=== PATIENT | female | born 1985 | race Caucasian/White ===

== ENCOUNTER 2018-08-27 03:08 | Inpatient (IN) | payer BC, MEDICAID ==
[~2018-08-27 03:08] MED LIST: Bupivacaine 0.25% 10 ML SDV ONE
[2018-08-27] MEDS ORDERED: Nalbuphine 10 MG/1 ML Vial IVPUSH PRN (03:49)
[2018-08-27] MEDS ORDERED: Sodium Chloride 0.9% 10 ML Syringe FLUSH PRN (03:49)
[2018-08-27] MEDS ORDERED: Oxytocin/Lactated Ringers 10 UNIT/1,000 ML BAG IV SCH ×2 (04:00)
[2018-08-27] MEDS: Lactated Ringers 1,000 ML IV SCH ×2 (06:18→07:10)
[2018-08-27] MEDS ORDERED: ePHEDrine 50 MG/ML SDV IVPUSH PRN ×3 (07:07→18:11)
[2018-08-27] MEDS ORDERED: fentaNYL 100 MCG/2 ML SDV EPIDUR PRN (07:07)
[2018-08-27] MEDS ORDERED: Ondansetron 4 MG/2 ML SDV IVPUSH PRN ×2 (07:07→15:59)
--- NOTE | 2018-08-27 07:11 | PCM.PREANE ---
Preanesthetic Assessment - Anesthesia/Transfusion/Family Hx Anesthesia History: Prior Anesthesia Without Reaction Family History of Anesthesia Reaction: No Transfusion History: No Prior Transfusion(s) Intubation History: Unknown - Review of Systems General: No Symptoms Pulmonary: No Symptoms Cardiovascular: No Symptoms Gastrointestinal: No Symptoms Neurological: No Symptoms Other: Reports: None - Physical Assessment NPO Status Date: 08/27/18 NPO Status Time: 05:30 Pulse: 91 O2 Sat by Pulse Oximetry: 99 Respiratory Rate: 17 Blood Pressure: 138/75 Temperature: 35.9 C Vital Signs: Last Vital Signs Temp 35.9 C 08/27/18 03:50 Pulse 91 08/27/18 03:50 Resp 17 08/27/18 03:50 BP 138/75 08/27/18 03:50 Pulse Ox Height: 1.57 m Weight: 79.787 kg ASA Class: 2 Mental Status: Alert & Oriented x3 Airway Class: Mallampati = 2 Dentition: Reports: Normal Dentition, Caries Thyro-Mental Finger Breadths: 3 Mouth Opening Finger Breadths: 3 ROM/Head Extension: Full Lungs: Clear to Auscultation, Normal Respiratory Effort Cardiovascular: Regular Rate, Regular Rhythm, No Murmurs - Lab Values: Laboratory Last Values WBC 15.48 K/mm3 (3.98-10.04) H 08/27/18 04:10 RBC 3.85 M/mm3 (3.98-5.22) L 08/27/18 04:10 Hgb 10.8 gm/L (11.2-15.7) L 08/27/18 04:10 Hct 32.7 % (34.1-44.9) L 08/27/18 04:10 MCV 84.9 fl (79.4-94.8) D 08/27/18 04:10 MCH 28.1 pg (25.6-32.2) 08/27/18 04:10 MCHC 33.0 g/dl (32.2-35.5) 08/27/18 04:10 RDW Std Deviation 42.1 fL (36.4-46.3) 08/27/18 04:10 Plt Count 260 K/mm3 (182-369) 08/27/18 04:10 MPV 10.8 fl (9.4-12.3) 08/27/18 04:10 Neut % (Auto) 80.7 % (34.0-71.1) H 08/27/18 04:10 Lymph % (Auto) 13.8 % (19.3-51.7) L 08/27/18 04:10 [place] % (Auto) 4.8 % (4.7-12.5) 08/27/18 04:10 Eos % (Auto) 0.3 (0.7-5.8) L 08/27/18 04:10 Baso % (Auto) 0.1 % (0.1-1.2) 08/27/18 04:10 Neut # (Auto) 12.52 K/mm3 (1.56-6.13) H 08/27/18 04:10 Lymph # (Auto) 2.13 K/mm3 (1.18-3.74) 08/27/18 04:10 [place] # (Auto) 0.74 K/mm3 (0.24-0.36) H 08/27/18 04:10 Eos # (Auto) 0.04 K/mm3 (0.04-0.36) 08/27/18 04:10 Baso # (Auto) 0.01 K/mm3 (0.01-0.08) 08/27/18 04:10 Above labs reviewed and noted and within acceptable ranges to proceed with epidural if desired. 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: - SUBSTANCE USE Smoking Status *Q: Former Smoker Tobacco Use Within Last Twelve Months: Cigarettes Second Hand Smoke Exposure: No Recreational Drug Use History: Yes Recreational Drug Type: Reports: Marijuana/Hashish Recreational Drug Last Use: 2 years ago - HOME MEDS Home Medications: Home Meds Fish Oil/[place]-3 Fatty Acids [Fish Oil] 1 each PO DAILY 08/27/18 [History] Pnv No.95/Ferrous Fum/Folic AC [ Caplet] 1 each PO DAILY 08/27/18 [ History] Vitamin B Complex [B Complex] 1 each PO DAILY 08/27/18 [History] - CURRENT (IN HOUSE) MEDS Current Meds: Current Medications Lactated Ringer's (Ringers, Lactated) 1,000 mls @ 100 mls/hr IV ASDIRECTED BISHOP Last Admin: 08/27/18 06:18 Dose: 100 mls/hr Oxytocin/Lactated Ringer's (Pitocin In Lr 10 Units/1,000 Ml) 10 unit in 1,000 mls @ 12 mls/hr IV TITRATE BISHOP; Protocol Oxytocin/Lactated Ringer's (Pitocin In Lr 10 Units/1,000 Ml) 10 unit in 1,000 mls @ 500 mls/hr IV .CONTINUOUS BISHOP Nalbuphine HCl (Nubain) 10 mg IVPUSH Q2H PRN PRN Reason: Pain Sodium Chloride (Saline Flush) 10 ml FLUSH ASDIRECTED PRN PRN Reason: Keep Vein Open
[2018-08-27] MEDS ORDERED: Phenylephrine 1 MG in Sodium Chloride 0.9% 10 ML IV SCH ×2 (07:15→16:00)
[2018-08-27] MEDS ORDERED: Bupivacaine/fentaNYL/NS 100 ML Bag EPIDUR SCH (07:15)
--- NOTE | 2018-08-27 08:36 | PCM.LDHP ---
L&D History of Present Illness - General Date of Service: 08/27/18 Admit Problem/Dx: Patient Status Order with Admit Dx/Problem 08/27/18 03:50 Patient Status [ADT] Routine Admission Diagnosis/Problem Admission Diagnosis/Problem 08/27/18 08:25 Sheri is a 32-year-old 2 para 0010 white female admitted at 40-0/7 weeks gestational age with an TRISTON of 08/27/2018 in active labor. Source of Information: Patient History Limitations: Reports: No Limitations - History of Present Illness Introduction:: Sheri is a 32-year-old 2 para 0010 white female admitted at 40-0/7 weeks gestational age with an TRISTON of 08/27/2018 in active labor.Patient scheduled for induction on a.m. of admission but came in in active labor with cervical change. She is ariana every 2-3 minutes, moderate intensity and has progressed to 6 cm dilation. Excellent water is intact. heart tones are reassuring and patient reports good activity. 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 Patient had menarche at age 13. Cycles 30 days. Menses are regular and last menstrual period was approximately. Her TRISTON of 08/27/2018 is set by a last menstrual period but supported by an ultrasound done at 10-3/7 weeks and 3 other ultrasounds done on 01/15/2018 01/04/2018 and 04/12/2017. course has been relatively unremarkable. She did have an abnormal 1 hour glucose tolerance test but a normal three-hour glucose tolerance test. She plans to breast-feed. She is a centering patient. She declines flu vaccination. [place] depression screening score on 04/23/2018 was 4/ 30. He is group B strep negative. [place] screen done at 16-18 weeks was negative. She initially had a subchorionic hemorrhage which resolved with time. Patient was first seen on 01/29/2018 and was seen on a regular basis in the centering program. Her weight gain was from 142-177 for a 35 pound weight gain. Vital signs remained stable throughout the course and her fundal height growth was appropriate. Baby is in a vertex presentation laboratory testing: Patient's blood is O+ with a negative antibody screen. First hemoglobin was 11.4 g/dL. Platelets are 313,000. She is rubella immune. RPR is nonreactive. Urine culture was unremarkable. Hepatitis B surface antigen and HIV assays were both negative. Her chlamydia and gonorrhea assays were both negative. Second trimester testing showed hemoglobin to be 10.4 g/dL and platelets at 304, 000. One-hour GTT was 157. Three-hour glucose tolerance test was normal with a fasting blood sugar of 83, a 1 hour glucose of 142, a 2 hour glucose 117 and a three-hour glucose 93. Group B strep screen negative. Allergies: None Medications: 1. B complex oral capsules 1 daily 2. vitamins 1 daily 3. Fish oil capsule 1 daily Past medical history:. 1. Miscarriage 1 2018natural passage. 2. Dysplastic nevus Past surgical history: 1. Tonsillectomy 1991 Family history: Mother is alive but with hypercholesterolemia. Father is alive and well. 2 sistersolder sister with hypothyroidismthyroid removed. Middle sister with history of seizures. Maternal grandfather . He had suffered from polio. Maternal grandmother is , breast cancer at age 60+. Paternal grandfather secondary to heart disease and an NC. Paternal grandmother is alive and well. Maternal aunt with skin cancer. No bleeding or clotting or anesthesia problems noted in the family. One paternal cousin with muscular dystrophy. Mother had 2 miscarriages. Social history: Patient is single. 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 She lives in [place] with her significant other Jose Becerril. She does not use incentive most alcohol, drugs or tobacco. Review of systems: In general patient has no complaints. She is ariana. Baby has been active. Skin: Negative Lungs: No infectious symptoms or shortness of breath Cardiovascular: No chest pain or exercise intolerance Breasts: Changes associated with . GI: Negative : Changes associated with . Musculoskeletal: Negative Neurological: Negative Physical exam: In general the patient is well-developed, well-nourished, pleasant female of stated age in no acute distress. Patient is ariana regularly. Skin is warm dry without lesions. HEENT, neck and back within normal limits. Lungs are clear with good breath sounds in all lung ly. Cardiovascular exam shows regular and rhythm without murmurs. Breast exam is deferred having been on first visit was found to be normal. Patient plans to breast-feed. Abdomen is gravid with last fundal height in clinic at 39 cm, baby in vertex presentation. Genital exam per nursing staff shows cervix to be 6 cm dilated, near 100% effaced, bulging bag of enrique. Extremities and neurological exam are grossly within normal limits. 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: Social & Family History - Family History Family Medical History: Noncontributory - Tobacco Use Smoking Status *Q: Former Smoker Packs/Tins Daily: 0.5 Used Tobacco, but Quit: Yes Month/Year Tobacco Last Used: 12/2016 Second Hand Smoke Exposure: No - Recreational Drug Use Recreational Drug Use: Yes Drug Use in Last 12 Months: No Recreational Drug Type: Reports: Marijuana/Hashish Recreational Drug Use Frequency: Not Used In Over 6 Months Recreational Drug Last Use: 2 years ago H&P Review of Systems - Review of Systems: Review Of Systems: See Below L&D Exam - Exam Exam: See Below - Vital Signs Vital Signs: Last Vital Signs Temp 35.9 C 08/27/18 07:27 Pulse 91 08/27/18 07:27 Resp 17 08/27/18 07:27 BP 138/75 08/27/18 07:27 Pulse Ox 99 08/27/18 07:27 Weight: 79.787 kg - Patient Data Lab Results Last 24 hrs: Laboratory Results - last 24 hr 08/27/18 Range/Units 04:10 WBC 15.48 H (3.98-10.04) K/mm3 RBC 3.85 L (3.98-5.22) M/mm3 Hgb 10.8 L (11.2-15.7) gm/L Hct 32.7 L (34.1-44.9) % MCV 84.9 D (79.4-94.8) fl MCH 28.1 (25.6-32.2) pg MCHC 33.0 (32.2-35.5) g/dl RDW Std Deviation 42.1 (36.4-46.3) fL Plt Count 260 (182-369) K/mm3 MPV 10.8 (9.4-12.3) fl Neut % (Auto) 80.7 H (34.0-71.1) % Lymph % (Auto) 13.8 L (19.3-51.7) % [place] % (Auto) 4.8 (4.7-12.5) % Eos % (Auto) 0.3 L (0.7-5.8) Baso % (Auto) 0.1 (0.1-1.2) % Neut # (Auto) 12.52 H (1.56-6.13) K/mm3 Lymph # (Auto) 2.13 (1.18-3.74) K/mm3 [place] # (Auto) 0.74 H (0.24-0.36) K/mm3 Eos # (Auto) 0.04 (0.04-0.36) K/mm3 Baso # (Auto) 0.01 (0.01-0.08) K/mm3 Result Diagrams: 08/27/18 04:10 Problem List Initiated/Reviewed/Updated: Yes Orders Last 24hrs: Active Orders 24 hr Category Date Time Status Patient Status [ADT] Routine ADT 08/27/18 03:50 Active Activity as Tolerated [RC] PFP Care 08/27/18 03:50 Active Communication Order [RC] ASDIRECTED Care 08/27/18 03:50 Active Notify Provider [RC] ASDIRECTED Care 08/27/18 07:07 Active Notify Provider [RC] PFP Care 08/27/18 03:50 Active Notify Provider [RC] PRN Care 08/27/18 03:50 Active Oxygen Therapy [RC] ASDIRECTED Care 08/27/18 07:07 Active Peripheral IV Care [RC] . DIRECTED Care 08/27/18 03:51 Active Pulse Oximetry [RC] ASDIRECTED Care 08/27/18 07:07 Active Vital Signs [RC] PER UNIT ROUTINE Care 08/27/18 03:50 Active Regular Diet [DIET] Diet 08/27/18 Breakfast Active RAPID PLASMA REAGIN,RPR [CHEM] Routine Lab 08/27/18 04:10 Received Bupivacaine/fentaNYL/NS [fentaNYL/Bupivacaine/NS 2 MCG- Med 08/27/18 07:15 Active 0.125% 100 ML] 100 ml EPIDUR ASDIRECTED Lactated Ringers [Ringers, Lactated] 1,000 ml Med 08/27/18 04:00 Active IV ASDIRECTED Nalbuphine [Nubain] Med 08/27/18 03:49 Active 10 mg IVPUSH Q2H PRN Ondansetron [Zofran] Med 08/27/18 07:07 Active 4 mg IVPUSH ONETIME PRN Oxytocin/Lactated Ringers [Pitocin in LR 10 Units/1,000 Med 08/27/18 04:00 Active ML] 10 unit in 1,000 ml IV .CONTINUOUS Oxytocin/Lactated Ringers [Pitocin in LR 10 Units/1,000 Med 08/27/18 04:00 Active ML] 10 unit in 1,000 ml IV TITRATE Phenylephrine [Osmin-Synephrine] 1 mg Med 08/27/18 07:15 Active Sodium Chloride 0.9% [Normal Saline] 10 ml IV TITRATE Sodium Chloride 0.9% [Saline Flush] Med 08/27/18 03:49 Active 10 ml FLUSH ASDIRECTED PRN ePHEDrine [ePHEDrine sulfate] Med 08/27/18 07:07 Active 5 mg IVPUSH ASDIRECTED PRN fentaNYL [Sublimaze] Med 08/27/18 07:07 Active 100 mcg EPIDUR Q3H PRN Electronic Heart Tones Ext w TOCO [WOMSER] Oth 08/27/18 03:50 Ordered Routine Electronic Heart Tones Internal [WOMSER] Per Unit Oth 08/27/18 03:50 Ordered Routine Peripheral IV Insertion Adult [OM.PC] Routine Oth 08/27/18 03:50 Ordered Resuscitation Status Routine Resus Stat 08/27/18 03:49 Ordered Medication Orders Ephedrine Sulfate (Ephedrine Sulfate) 5 mg IVPUSH ASDIRECTED PRN PRN Reason: Hypotension Fentanyl (Sublimaze) 100 mcg EPIDUR Q3H PRN PRN Reason: Pain Last Admin: 08/27/18 07:29 Dose: 100 mcg Fentanyl/Bupivacaine HCl (Fentanyl/Bupivacaine/Ns 2 Mcg-0.125% 100 Ml) 100 ml EPIDUR ASDIRECTED BISHOP Last Admin: 08/27/18 07:28 Dose: 100 ml Lactated Ringer's (Ringers, Lactated) 1,000 mls @ 100 mls/hr IV ASDIRECTED BISHOP Last Admin: 08/27/18 07:10 Dose: 100 mls/hr Infusion: 08/27/18 07:10 Dose: 100 mls/hr Admin: 08/27/18 06:18 Dose: 100 mls/hr Oxytocin/Lactated Ringer's (Pitocin In Lr 10 Units/1,000 Ml) 10 unit in 1,000 mls @ 12 mls/hr IV TITRATE BISHOP; Protocol Oxytocin/Lactated Ringer's (Pitocin In Lr 10 Units/1,000 Ml) 10 unit in 1,000 mls @ 500 mls/hr IV .CONTINUOUS BISHOP Phenylephrine HCl 1 mg/ Sodium (Chloride) 10.1 mls @ 1 mls/sec IV TITRATE BISHOP; Protocol Nalbuphine HCl (Nubain) 10 mg IVPUSH Q2H PRN PRN Reason: Pain Ondansetron HCl (Zofran) 4 mg IVPUSH ONETIME PRN PRN Reason: Nausea/Vomiting Sodium Chloride (Saline Flush) 10 ml FLUSH ASDIRECTED PRN PRN Reason: Keep Vein Open Assessment/Plan Comment:: 1. 2 para 0010 female with a 40-0/7 week intrauterine -TRISTON 08/27, in active labor with advanced cervical dilation 2. Group B strep screen negative 3. Patient plans to breast-feed 4. One hour GTT was elevated but three-hour GTT was normal. 5. Patient plans to do epidural in labor and delivery 6. RPR is nonreactive, she is rubella immune. 7. T dap-given on 05/21/2018 Plan: 1. Anticipate normal spontaneous vaginal delivery 2. Epidural when necessary for labor analgesia 3. CBC and RPR per protocol 4. Support breast-feeding decision 5. Routine labor care.
[2018-08-27] MEDS ORDERED: Metoclopramide 10 MG/2 ML SDV ONE (15:33)
[2018-08-27] MEDS ORDERED: Citric Acid/Sodium Citrate Solution 30 ML Cup ONE (15:34)
--- NOTE | 2018-08-27 15:40 | PCM.SN ---
- Free Text/Narrative Note: Patient made to complete dilation approximately 1415 hrs. She pushed for some period of time and began having multiple variable decelerations. To proceed to an attempt at phaco extraction. The procedure, risks, benefits, alternatives of care including a section DISCUSSED with patient. She appeared to understand and wish to proceed. Verbal consent was given. The vacuum extraction attempt was made with 3 contractions the vacuum extractor was used to apply action and was unsuccessful. The baby's head was brought down to +3 station but was not able to be brought beyond that. Patient's heart tones continued to have significant variable decelerations associated with contractions. Because of the non-descent of the head and the nonreassuring heart tones decision was made to proceed to primary section. The procedure of section, its risks, benefits discussed with patient and her significant other shown. It appeared understand and wish to proceed and a consent is signed. heart tones allowed to recover and at the time of transfer to the room when 120s with moderate variability.
[2018-08-27] MEDS ORDERED: Ketorolac 30 MG/ML SDV ONE (15:41)
[2018-08-27] MEDS ORDERED: ceFAZolin 1 GM Vial ONE (15:41)
[2018-08-27] MEDS ORDERED: Bupivacaine 0.5% 30 ML SDV ONE (15:41)
[2018-08-27] MEDS ORDERED: Lactated Ringers 1,000 ML ONE (15:41)
[2018-08-27] MEDS ORDERED: Ondansetron 4 MG/2 ML SDV ONE (15:41)
[2018-08-27] MEDS ORDERED: Morphine PF 10 MG/10 ML SDV ONE (15:41)
[2018-08-27] MEDS ORDERED: Phenylephrine/Normal Saline 100 MCG/ML 10 ML Syringe ONE (15:41)
[2018-08-27] MEDS ORDERED: fentaNYL 100 MCG/2 ML SDV ONE (15:41)
[2018-08-27] MEDS ORDERED: Lidocaine 2% with EPINEPHrine 1:200,000 20 ML SDV ONE (15:41)
[2018-08-27] MEDS ORDERED: Oxytocin 10 Units/1 ML SDV ONE (15:41)
[2018-08-27] MEDS ORDERED: HYDROmorphone 0.5 MG/0.5 ML Syringe IVPUSH PRN (15:59)
[2018-08-27] MEDS ORDERED: diphenhydrAMINE 50 MG/ML SDV IVPUSH PRN ×2 (15:59→18:11)
[2018-08-27] MEDS ORDERED: fentaNYL 100 MCG/2 ML SDV IVPUSH PRN (15:59)
[2018-08-27] MEDS ORDERED: Meperidine 50 MG/ML Vial ONE (16:03)
--- NOTE | 2018-08-27 16:40 | PCM.POSTAN ---
POST ANESTHESIA ASSESSMENT - MENTAL STATUS Mental Status: Alert - VITAL SIGNS Pulse Rate: 76 SaO2: 96 Resp Rate: 17 Blood Pressure: 88/41 Temperature: 37.5 C - RESPIRATORY Respiratory Status: Respiratory Rate WNL, Airway Patent, O2 Saturation Stable, Supplemental Oxygen - CARDIOVASCULAR CV Status: Pulse Rate WNL, Blood Pressure Stable - GASTROINTESTINAL GI Status: No Symptoms - POST OP HYDRATION Hydration Status: Adequate & Stable
--- NOTE | 2018-08-27 16:42 | PCM.OPNOTE ---
- General Post-Op/Procedure Note Date of Surgery/Procedure: 08/27/18 Operative Procedure(s): Primary lower uterine segment transverse section through Pfannenstiel skin incision Findings: Baby was occiput posterior. Nuchal cord moderately tight 1 amniotic fluid clear. Uterus tubes ovaries consistent with normal term Pre Op Diagnosis: 1. 40-0/7 week intrauterine . 2. Failure to descend Post-Op Diagnosis: Same with nuchal cord 1 and persistent occiput posterior position. Anesthesia Technique: Spinal Other Anesthesia Type: Marcaine her 0.5%20 mLlocal Primary Surgeon: Heriberto Guerin Secondary Surgeon: Manuel Omer Anesthesia Provider: Lana Nguyen Reason Auction Clerk Was Necessary: Retraction, assistance, patient safety, quality of care. Fluid Replacement, Intraop: 900 Output, Urine Amount: 25 EBL in mLs: 700 Drain/Tube Comments:: Indwelling bladder catheter Complications: None Condition: Good Free Text/Narrative:: Intake & Output 08/27/18 08/27/18 08/27/18 06:59 14:59 22:59 Intake Total 1000 Balance 1000 Surgery duration: 28 minutes Surgery duration: Procedure: The patient is appropriately consented. Patient was transferred to the room. Epidural analgesia was bolstered to anesthesia level. After confirmation of adequate anesthesia patient was placed in a supine position with a wedge under her right side to facilitate left lateral positioning. Patient is minimally frog legged in order to possibly lift up vaginally on the baby's head if necessary due to slow placement in the pelvis. The patient was prepped and draped in usual fashion. Kim catheter was already placed . The anesthetic was checked and found to be adequate. 20 mL of Marcaine 0.5% was injected locally in the Pfannenstiel incision site. The Pfannenstiel skin incision was then made and carried down through skin, subcutaneous and fascial layers. The fascia was then undermined superiorly and inferiorly to allow for adequate operating room. The recti muscles midline and preperitoneal fat was bluntly dissected. Peritoneal cavity was entered longitudinally. The vesicouterine peritoneum was then incised transversely and bladder flap was developed. Myometrium was incised transversely to the level of the amniotic sac. This incision was extended bilaterally in a blunt fashion. The amniotic sac was then ruptured resulting in clear amniotic fluid. A hand is placed in the low uterine segment and the baby's head was brought forth through the incision. The baby was completely delivered using fundal pressure in a routine fashion. The nose and mouth were bulb suctioned. Baby's cord was clamped x2 cut and baby was handed off to attending stretcher operator Dr Salazar. Placenta was expressed after cord blood was obtained. Uterus was then exteriorized to allow for easier closure. The cervix was assessed and found to be dilated adequately to allow egress of blood. The uterus was closed in 2 layers. The first layer a running locked suture of 0 Monocryl, the second layer a running locked vertical mattress suture of 0 Monocryl. [id number] suture was placed at mid incision to control 1 bleeder. Hemostasis confirmed at this time. Sponge instrument needle counts are correct. The uterus was returned to the abdominal cavity and lateral gutters were cleared of blood. Once again sponge needle counts are correct. The anterior abdominal wall fascia was closed with a #1 PDS suture from angle to angle. The subcutaneous area was found to be free of any bleeders. Skin was closed with a running subcuticular stitch of 3-0 Monocryl in a vertical mattress suture fashion using a Zana needle. Prineo mesh/glue was then applied to further approximate the incision. It should be noted that patient received 2 g of Ancef preoperatively for infection prophylaxis and had Pitocin infused after delivery of the placenta to facilitate uterine contraction. She also had sequential compression stockings in place for DVT prophylaxis. Patient was discharged from the operating room in satisfactory condition.
[2018-08-27] MEDS ORDERED: Naloxone 0.4 MG/ML SDV IVPUSH PRN (18:11)
[2018-08-27] MEDS ORDERED: Ondansetron 4 MG/2 ML SDV IV PRN (18:11)
[2018-08-27] MEDS ORDERED: Lanolin 100% Cream 7 GM Tube TOP PRN (18:11)
[2018-08-27] MEDS ORDERED: Dextrose 5%-Lactated Ringers 1,000 ML IV SCH (18:11)
[2018-08-27] MEDS ORDERED: Ibuprofen 800 MG Tab PO SCH ×2 (18:11→22:00)
[2018-08-27] MEDS ORDERED: Acetaminophen/oxyCODONE 325-5 MG Tab PO PRN (18:11)
[2018-08-27] MEDS: Simethicone 80 MG Tab.Chew PO SCH (21:08)
[2018-08-27] MEDS ORDERED: Metoclopramide 10 MG/2 ML SDV IVPUSH PRN (22:44)
[2018-08-27] MEDS: Sodium Chloride 0.9% 800 ML IV ONE (23:00)
[2018-08-28] MEDS: Sodium Chloride 0.9% 800 ML IV ONE (02:29)
[2018-08-28] MEDS: Simethicone 80 MG Tab.Chew PO SCH ×5 (02:30→20:57)
--- NOTE | 2018-08-28 07:30 | PCM48HPAN ---
Post Anesthesia Note - EVALUATION WITHIN 48HRS OF ANESTHETIC Vital Signs in Normal Range: Yes Patient Participated in Evaluation: Yes Respiratory Function Stable: Yes Airway Patent: Yes Cardiovascular Function Stable: Yes Hydration Status Stable: Yes Pain Control Satisfactory: Yes Nausea and Vomiting Control Satisfactory: Yes Mental Status Recovered: Yes
[2018-08-28] MEDS: Ibuprofen 800 MG Tab PO SCH ×2 (08:34→17:40)
[2018-08-28] MEDS: Docusate Sodium 100 MG Cap PO PRN (08:35)
[2018-08-28] MEDS: Prenatal Multivitamin with Calcium/Folic Acid/Iron Tab PO SCH (14:36)
--- NOTE | 2018-08-28 17:56 | PCM.SN ---
- Free Text/Narrative Note: note: Postoperative day one Patient is doing well in the period. Minimal lochia, voiding well, ambulated without problems. Nursing without concerns. Patient is afebrile, vital signs are stable Abdomen is flat, soft, uterus is below the umbilicus and is firm and nontender. Incision appears to be intact, dry, mesh is still in place. Positive bowel sounds are noted. Legs are nontender. Hemoglobin is decreased to 7.2 from 10.8. Patient clinically is doing well however Assessment: /postoperative day one-recovery going well. Plan: Routine care. Patient be discharged home within the next 24-48 hours. Recheck CBC in the morning if stable will supplement with iron only.
[2018-08-29] MEDS: Ibuprofen 800 MG Tab PO SCH ×3 (01:11→17:50)
[2018-08-29] MEDS: Simethicone 80 MG Tab.Chew PO SCH ×4 (08:36→21:52)
[2018-08-29] MEDS: Docusate Sodium 100 MG Cap PO PRN (08:41)
[2018-08-29] MEDS: Prenatal Multivitamin with Calcium/Folic Acid/Iron Tab PO SCH (16:03)
[2018-08-30] MEDS: Ibuprofen 800 MG Tab PO SCH ×2 (01:11→08:22)
--- NOTE | 2018-08-30 05:30 | PCM.DCSUM1 ---
Discharge Summary - Hospital Course Free Text/Narrative:: Sheri is a 32-year-old 2 now para 1011 white female who was admitted on in active labor. She presented with progressive cervical dilation, contractions. She progressed to complete cervical dilation. During the course of this progression she began having significant variable decelerations. After achieving complete cervical dilation she pushed for approximately 1 hour at which time the variable decelerations became severe with occasions of bradycardia. Decision was made to proceed to an attempted vacuum extraction delivery. Vacuum extraction delivery was attempted for 3 contractions. No pop offs were noted. The baby failed however to deliver and decision was made to proceed to primary section. Primary section was accomplished on 08/27/2018. Patient was delivered of a baby boy born at 1600 hrs. on 2018. Apgars were 8 and 8. Weight was 3310 g Fc 7 lbs. 5 oz.). Diagnosis was failure to descend. Patient is noted to have clear amniotic fluid. The nuchal cord was moderately tight 1 and baby was in a persistent occiput posterior position. Anatomy however was completely normal for term . patient is done well. She is recovering well.She is ambulating well. She is nursing without concerns and is voiding without difficulties. Her hemoglobin has decreased from just over 10 mg deciliter on admission to 6.8 mg/ dL at this time. She is however clinically stable and is to be tolerating this blood loss anemia well. See made to not transfuse her this time stability. Patient is desiring discharge home today. Diagnosis: Stroke: No - Discharge Data Discharge Date: 08/30/18 Discharge Disposition: Home, Self-Care 01 Condition: Good - Patient Summary/Data Operative Procedure(s) Performed: Primary lower uterine segment transverse section through Pfannenstiel skin incision - Patient Instructions Diet: Regular Diet as Tolerated (Nursing diet with increase calories and calcium as recommended) Activity: As Tolerated (No intercourse or tampons until seen back. No lifting greater than 15 pounds or driving a car 1 week.) Driving: Do Not Drive (1 week.) Showering/Bathing: May Shower Wound/Incision Care: Keep Operative Site/Wound Site Clean and Dry Notify Provider of: Fever, Increased Pain, Swelling and Redness, Drainage, Nausea and/or Vomiting - Discharge Plan Prescriptions/Med Rec: Ferrous Sulfate 325 mg PO BID #100 tablet Home Medications: Home Meds Fish Oil/[place]-3 Fatty Acids [Fish Oil] 1 each PO DAILY 08/27/18 [History] Pnv No.95/Ferrous Fum/Folic AC [ Caplet] 1 each PO DAILY 08/27/18 [ History] Vitamin B Complex [B Complex] 1 each PO DAILY 08/27/18 [History] Acetaminophen/oxyCODONE [Percocet 325-5 MG] 2 tab PO Q4H PRN tablet 08/30/18 [ Rx] Ferrous Sulfate 325 mg PO BID #100 tablet 08/30/18 [Rx] Ibuprofen [Motrin] 800 mg PO Q8H tablet 08/30/18 [Rx] Patient Handouts: Delivery, Care After Referrals: Heriberto Guerin MD [Primary Care Provider] - (Return to clinicDr. Guerin2 weeks.) - Discharge Summary/Plan Comment DC Time >30 min.: No Discharge Summary/Plan Comment: Discharge instructions: 1. Discharge home 2. Diet, activity and follow-up discussed with patient. Recommend nursing diet with increased calories and calcium. 3. Precautions given concern increased pain, bleeding, temperature, signs/ symptoms of DVT/PE. 4. Medications per home medication was printed, discussed with and given to the patient. 5. Return to clinic-Dr. Guerin[facility] in 2 weeks. Diagnosis: 1. Term - failure to descend -Delivered by primary section 2. anemia secondary to related anemia and acute blood loss anemia Condition: Good - Patient Data Vitals - Most Recent: Last Vital Signs Temp 36.4 C 08/30/18 04:47 Pulse 71 08/30/18 04:47 Resp 14 08/30/18 04:47 BP 129/81 08/30/18 04:47 Pulse Ox 95 08/30/18 04:47 Weight - Most Recent: 79.787 kg I&O - Last 24 hours: Intake & Output 08/29/18 08/29/18 08/30/18 14:59 22:59 06:59 Intake Total 0 Balance 0 Lab Results - Last 24 hrs: Laboratory Results - last 24 hr 08/29/18 Range/Units 05:19 WBC 16.88 H (3.98-10.04) K/mm3 RBC 2.44 L (3.98-5.22) M/mm3 Hgb 6.8 L* (11.2-15.7) gm/L Hct 21.6 L (34.1-44.9) % MCV 88.5 (79.4-94.8) fl MCH 27.9 (25.6-32.2) pg MCHC 31.5 L (32.2-35.5) g/dl RDW Std Deviation 44.0 (36.4-46.3) fL Plt Count 233 (182-369) K/mm3 MPV 10.9 (9.4-12.3) fl Neut % (Auto) 77.0 H (34.0-71.1) % Lymph % (Auto) 16.5 L (19.3-51.7) % [place] % (Auto) 5.7 (4.7-12.5) % Eos % (Auto) 0.4 L (0.7-5.8) Baso % (Auto) 0.1 (0.1-1.2) % Neut # (Auto) 13.00 H (1.56-6.13) K/mm3 Lymph # (Auto) 2.78 (1.18-3.74) K/mm3 [place] # (Auto) 0.97 H (0.24-0.36) K/mm3 Eos # (Auto) 0.07 (0.04-0.36) K/mm3 Baso # (Auto) 0.01 (0.01-0.08) K/mm3 Manual Slide Review Abnormal smear Med Orders - Current: Current Medications Diphenhydramine HCl (Benadryl) 25 mg IVPUSH Q6H PRN PRN Reason: Itching or Nausea Docusate Sodium (Colace) 100 mg PO Q12H PRN PRN Reason: Constipation Last Admin: 08/29/18 08:41 Dose: 100 mg Emollient Ointment (Lansinoh Hpa) 0 gm TOP ASDIRECTED PRN PRN Reason: Sore Nipples Ephedrine Sulfate (Ephedrine Sulfate) 5 mg IVPUSH SEECOMMENT PRN PRN Reason: Other Ibuprofen (Motrin) 800 mg PO Q8H BISHOP Last Admin: 08/30/18 01:11 Dose: 800 mg Metoclopramide HCl (Reglan) 10 mg IVPUSH Q4H PRN PRN Reason: Nausea/Vomiting Last Admin: 08/27/18 22:55 Dose: 10 mg Naloxone HCl (Narcan) 0.1 mg IVPUSH SEECOMMENT PRN PRN Reason: Respiratory Depression Ondansetron HCl (Zofran) 4 mg IV Q4H PRN PRN Reason: Nausea/Vomiting Last Admin: 08/27/18 20:40 Dose: 4 mg Oxycodone/Acetaminophen (Percocet 325-5 Mg) 2 tab PO Q4H PRN PRN Reason: Pain (moderate 4-6) Prenat Multivit/[employer]r/Iron/Folic Ac ( Plus Iron) 1 each PO DAILY [facility] Last Admin: 08/29/18 16:03 Dose: Not Given Simethicone (Simethicone) 160 mg PO QID [facility] Last Admin: 08/29/18 21:52 Dose: 160 mg Discontinued Medications Bupivacaine HCl (Marcaine 0.5%) Confirm Administered Dose 30 ml .ROUTE .STK-MED ONE Stop: 08/27/18 15:42 Last Admin: 08/27/18 15:57 Dose: 20 ml Bupivacaine HCl (Sensorcaine-Mpf 0.25%) 10 ml .ROUTE .STK-MED ONE Stop: 08/27/18 00:01 Cefazolin Sodium (Ancef) Confirm Administered Dose 2 gm .ROUTE .STK-MED ONE Stop: 08/27/18 15:42 Citric Acid/Sodium Citrate (Bicitra Solution) Confirm Administered Dose 30 ml .ROUTE .STK-MED ONE Stop: 08/27/18 15:35 Last Admin: 08/27/18 15:36 Dose: 30 ml Diphenhydramine HCl (Benadryl) 25 mg IVPUSH Q6H PRN PRN Reason: pruritis Ephedrine Sulfate (Ephedrine Sulfate) 5 mg IVPUSH ASDIRECTED PRN PRN Reason: Hypotension Ephedrine Sulfate (Ephedrine Sulfate) 5 mg IVPUSH ASDIRECTED PRN PRN Reason: Hypotension Fentanyl (Sublimaze) 100 mcg EPIDUR Q3H PRN PRN Reason: Pain Last Admin: 08/27/18 07:29 Dose: 100 mcg Fentanyl (Sublimaze) Confirm Administered Dose 100 mcg .ROUTE .STK-MED ONE Stop: 08/27/18 15:42 Fentanyl (Sublimaze) 50 mcg IVPUSH Q5M PRN PRN Reason: Pain Fentanyl/Bupivacaine HCl (Fentanyl/Bupivacaine/Ns 2 Mcg-0.125% 100 Ml) 100 ml EPIDUR ASDIRECTED [facility] Last Admin: 08/27/18 07:28 Dose: 100 ml Hydromorphone HCl (Dilaudid) 0.5 mg IVPUSH Q15M PRN PRN Reason: Pain (severe 7-10) Lactated Ringer's (Ringers, Lactated) 1,000 mls @ 100 mls/hr IV ASDIRECTED [facility] Last Admin: 08/27/18 07:10 Dose: 100 mls/hr Oxytocin/Lactated Ringer's (Pitocin In Lr 10 Units/1,000 Ml) 10 unit in 1,000 mls @ 12 mls/hr IV TITRATE BISHOP; Protocol Last Admin: 08/27/18 11:57 Dose: 2 munits/min, 12 mls/hr Oxytocin/Lactated Ringer's (Pitocin In Lr 10 Units/1,000 Ml) 10 unit in 1,000 mls @ 500 mls/hr IV .CONTINUOUS BISHOP Phenylephrine HCl 1 mg/ Sodium (Chloride) 10.1 mls @ 1 mls/sec IV TITRATE BISHOP; Protocol Lactated Ringer's (Ringers, Lactated) Confirm Administered Dose 1,000 mls @ as directed .ROUTE .[facility]-MED ONE Stop: 08/27/18 15:42 Phenylephrine HCl 1 mg/ Sodium (Chloride) 10.1 mls @ 1 mls/sec IV TITRATE BISHOP; Protocol Dextrose/Lactated Ringer's (Dextrose 5%-Lactated Ringers) 1,000 mls @ 125 mls/ hr IV ASDIRECTED [facility] Stop: 08/28/18 02:10 Last Admin: 08/27/18 20:45 Dose: 125 mls/hr Sodium Chloride (Normal Saline) 800 mls @ 999 mls/hr IV ONETIME ONE Stop: 08/27/18 23:33 Last Admin: 08/28/18 02:29 Dose: Not Given Ibuprofen (Motrin) 800 mg PO Q8H [facility] Last Admin: 08/27/18 21:48 Dose: Not Given Ibuprofen (Motrin) 800 mg PO Q8H [facility] Last Admin: 08/28/18 01:11 Dose: 800 mg Ketorolac Tromethamine (Toradol) Confirm Administered Dose 30 mg .ROUTE .STK- MED ONE Stop: 08/27/18 15:42 Lidocaine/Epinephrine (Xylocaine-Mpf 2%-Epi 1:200,000) Confirm Administered Dose 20 ml .ROUTE .STK-MED ONE Stop: 08/27/18 15:42 Meperidine HCl (Meperidine) Confirm Administered Dose 50 mg .ROUTE .STK-MED ONE Stop: 08/27/18 16:04 Metoclopramide HCl (Reglan) Confirm Administered Dose 10 mg .ROUTE .STK-MED ONE Stop: 08/27/18 15:34 Last Admin: 08/27/18 15:37 Dose: 10 mg Morphine Sulfate (Duramorph Pf) Confirm Administered Dose 10 mg .ROUTE .STK-MED ONE Stop: 08/27/18 15:42 Nalbuphine HCl (Nubain) 10 mg IVPUSH Q2H PRN PRN Reason: Pain Ondansetron HCl (Zofran) 4 mg IVPUSH ONETIME PRN PRN Reason: Nausea/Vomiting Ondansetron HCl (Zofran) Confirm Administered Dose 4 mg .ROUTE .STK-MED ONE Stop: 08/27/18 15:42 Ondansetron HCl (Zofran) 4 mg IVPUSH ONETIME PRN PRN Reason: Nausea/Vomiting Oxytocin (Pitocin) Confirm Administered Dose 20 unit .ROUTE .STK-MED ONE Stop: 08/27/18 15:42 Phenylephrine HCl (Phenylephrine In Ns 100 Mcg/Ml) Confirm Administered Dose 1 mg .ROUTE .STK-MED ONE Stop: 08/27/18 15:42 Sodium Chloride (Saline Flush) 10 ml FLUSH ASDIRECTED PRN PRN Reason: Keep Vein Open
[2018-08-30] MEDS: Docusate Sodium 100 MG Cap PO PRN (06:36)
[2018-08-30] MEDS: Simethicone 80 MG Tab.Chew PO SCH ×2 (08:22→14:03)
[2018-08-30] MEDS: Prenatal Multivitamin with Calcium/Folic Acid/Iron Tab PO SCH (08:24)
[2018-08-30] MEDS ORDERED: Magnesium Hydroxide 400 MG/5 ML Susp 30 ML Cup PO ONE (09:54)
== END 2018-08-30 14:35 | disposition home or self-care (01) | DRG 540 ==
LOC: JD.OB 03:08 → JD.OBCHECK 03:08 → JD.OB 03:50 → OBSVTOIN 16:00 → JD.OB 16:01
PROVIDERS: ADMIT Obstetrics & Gynecology; ATTEND Obstetrics & Gynecology
PROC: 10D00Z1 Extraction of Products of Conception, Low, Open Approach (ICD-10-PCS; principal; 2018-08-27)
DX: O48.0 Post-term pregnancy (principal); O76 Abnormality in fetal heart rate and rhythm complicating labor and delivery; O62.1 Secondary uterine inertia; O69.1XX0 Labor and delivery complicated by cord around neck, with compression, not applicable or unspecified; Z3A.40 40 weeks gestation of pregnancy; Z37.0 Single live birth; O90.81 Anemia of the puerperium; D62 Acute posthemorrhagic anemia
CPT/HCPCS: 01967; 01968; 36415; 51702; 59025; 85025; 86592; 94762; A9270-GY; J0690; J1885; J2175; J2270; J2370; J2405; J2590; J2765; J3010; J3490; J7040; J7042; J7120